=== PATIENT | male | born 1965 | race Caucasian/White ===

== ENCOUNTER 2017-09-27 17:59 | Emergency (ER) | payer OTHER ==
[2017-09-27 18:13] VITALS: BP 135/105; BMI 22.7
[2017-09-27] MEDS ORDERED: VALIUM INJ IM ONE (18:14)
[2017-09-27] MEDS ORDERED: VALIUM INJ ONE (18:19)
--- NOTE | 2017-09-27 18:28 | DR.GENAD ---
HPI - PCP Primary Care Physician: KARISHMA - Complaint/Symptoms Chief Complaint:: PT STATED HE WAS EATING AT THE TABLE AND THE TABLE FLIPPED OVER AND HE HURT HIS LEFT HIP AND LOWER BACK. HE ALSO STATED HE HAS HAD LOWER BACK INJURYS IN THE PAST - Source History Provided: Patient - Mode of Arrival Mode of Arrival: EMS - Timing Onset of Chief Complaint: 09/27/17 PMH - PMH Past Medical History: No Past Surgical History: Yes Surgical History: Ortho Surgery - Family History History of Family Medical Conditions: No - Social History Does patient currently use any type of tobacco product: Yes Have you used tobacco products in the last 12 months: Yes Type of Tobacco Use: Cigarettes How many years tobacco product used: 30 Does any household member use tobacco: No Alcohol Use: None Do you use any recreational Drugs:: No Lives With: Family Lives Where: Home - infectious screening In the last 2 months have you had wt loss of >10#?: NO Have you had fever, night sweats or hemotysis?: No Have you traveled outside the country in the last 6 months?: No Isolation: Standard ROS - Review of Systems Eyes: No Symptoms Reported ENTM: No Symptoms Reported Respiratoy: No Symptoms Reported Cardiovascular: No Symptoms Reported Gastrointestinal/Abdominal: No Symptoms Reported Genitourinary: No Symptoms Reported Neurological: No Symptoms Reported Musculoskeletal: No Symptoms Reported Integumentary: No Symptoms Reported Hematologic/Lymphatic: No Symptoms Reported Endocrine: No Symptoms Reported Psychiatric: No Symptoms Reported All Other Systems: Reviewed and Negative PE - Vital Signs Vitals: Temperature 99.0 F Pulse Rate 82 Respiratory Rate 18 Blood Pressure 135/105 O2 Sat by Pulse Oximetry 100 - General Limitations: No Limitations General Appearance: Alert, In No Apparent Distress - Head Head Exam: Normal Inspection, Atraumatic - Eyes Eye exam: Normal Appearance, PERRL, EOMI - ENT ENT Exam: Normal Exam, Normal Oropharynx External Ear Exam: Normal External Inspection TM/Canal Exam: Bilateral Normal Nose Exam: Normal Nose Exam Mouth Exam: Normal Inspection Throat Exam: Normal Inspection - Neck Neck Exam: Normal Inspection, Full ROM - Chest Chest Inspection: Normal Inspection, Symmetric Chest Wall Rise - Respiratory Respiratory Exam: Normal Lung Sounds Bilat Respiratory Exam: Bilateral Clear to Auscultation - Cardiovascular Cardiovascular Exam: Regular Rate, Normal Rhythm - Abdominal Exam Abdominal Exam: Normal Inspection Abdominal Tenderness: negative: RUQ, RLQ, LUQ, LLQ, Epigastrium, Suprapubic, Diffuse, Mild, Moderate, Severe, Other - Extremities Extremities Exam: Normal Inspection - Back Back Exam: Normal Inspection - Neurologic Neurological Exam: Alert, Oriented X3, CN II-XII Intact ROR - XRAY XRAY Interpreted by: Radiologist (Lumbar Spine: Chronic burst fracture L3 with narrowing of the central canal of 5mm at this level. Status post posterior spinal fusion L2-L4 without evidence of hardward failure. No acute fracture or malalignment. Multilevel degenerative change ) - Diagnosis Discharge Problem: Multilevel degenerative disc disease, posterior spinal fusion L2-L4 - Discharge Plan Condition: Stable - Follow ups/Referrals Follow ups/Referrals: Александр Pringle [Primary Care Provider] - 3 days - Instructions
--- NOTE | 2017-09-27 19:19 | CT ---
CT LUMBAR SPINE WITHOUT CLINICAL HISTORY: 52-year-old male with chronic low back pain and multiple back injuries status post fall. COMPARISON: None. TECHNIQUE: Multiple, noncontrasted axial CT images were obtained from the thoracolumbar junction to the sacrum and reconstructed in the sagittal and coronal planes. FINDINGS: The most caudad, fully-formed intervertebral disc will be labeled L5-S1 for the purpose of this dictation. Straightening of the lumbar lordosis as imaged with posterior spinal fusion L2-L4 wit h bilateral pedicular screws and vertical stabilization rods without evidence of hardware malfunction or failure. Surrounding beam hardening and streak artifact precludes complete evaluation of the imme diately adjacent structures. Chronic burst fracture L3, remaining vertebral body heights and interver tebral disc heights are preserved. Central canal is narrowed to 5 mm at the level of the burst fractu re secondary to retropulsion of fracture fragments. The posterior elements are normal in appearance a nd alignment. No other region of central canal or neural foraminal stenosis. T11-T12: No central canal or neural foraminal stenosis. T12-L1: Mild facet hypertrophy without central canal or neural foraminal stenosis. L1-L2: Mild facet hypertrophy without central canal or neural foraminal stenosis. L2-L3: Moderate facet hypertrophy without neural foraminal stenosis. Central canal narrowed to 5 mm. L3-L4: Moderate to severe facet hypertrophy with symmetric disc bulge without central canal stenosis. Mild bilateral neural foraminal stenosis. L4-L5: Moderate facet hypertrophy with disc bulge without central canal or neural foraminal stenosis. L5-S1: Moderate facet hypertrophy with disc bulge without central canal or neural foraminal stenosis. Calcific atherosclerosis within the aorta and its branches. IMPRESSION: 1. Chronic burst fracture L3 with narrowing of the central canal of 5 mm at this level. 2. Status post posterior spinal fusion L2-L4 without evidence of hardware failure. 3. No acute fracture or malalignment. 4. Multilevel degenerative change as described. Reported By:
[2017-09-27] MEDS ORDERED: TORADOL 60 MG VIAL IM ONE (19:25)
[2017-09-27] MEDS ORDERED: TORADOL 60 MG VIAL ONE (19:27)
== END 2017-09-27 20:15 | disposition home or self-care (01) ==
LOC: ER 18:12
DX: S32.001A Stable burst fracture of unspecified lumbar vertebra, initial encounter for closed fracture (principal); M51.36 Other intervertebral disc degeneration, lumbar region; M43.26 Fusion of spine, lumbar region; X58.XXXA Exposure to other specified factors, initial encounter; Y92.9 Unspecified place or not applicable
CPT/HCPCS: 72131; 96372; 99282; 99283; J1885; J3360